=== PATIENT | female | born 1970 | race Hispanic/Latino ===

== ENCOUNTER 2021-02-19 12:11 | Emergency (ER) | payer OTHER, SELFPAY ==
[2021-02-19 12:19] VITALS: BP 136/70; PULSE 73; RESP 18; TEMP 36.4; O2SAT 99; BMI 31.8
[2021-02-19 12:56] VITALS: BP 127/63; PULSE 74; RESP 22; O2SAT 99
--- NOTE | 2021-02-19 13:14 | ED_ITS ---
HPI - Back Pain/Injury <Don Henson PA-C - Last Filed: 02/19/21 13:53> General Chief Complaint: Trauma Stated Complaint: neck/shoulder pain x10 days Time Seen by Provider: 02/19/21 12:33 Source: patient and family History of Present Illness HPI Narrative: Porsche presents today with chief complaint left-sided neck pain and shoulder pain after she fell off of a hay wagon approximately 10 days ago. She reports that when she fell she landed onto her left shoulder and felt dazed for a few minutes. 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 She denies hitting her head, loss of consciousness, vomiting or any other significant symptoms at that time. The pain in her left shoulder and neck became worse over the following 2 days and she sought care at the walk-in clinic. X-rays were done of her shoulder and C-spine which came back with no obvious fractures. Patient's symptoms then remains stable. Over the last 2 days she has had worsening left-sided neck pain and muscle spasms. She went to the walk-in clinic again yesterday and saw the same provider who ordered C-spine films which came back within normal limits. The walk-in clinic provider suggested that she come to the emergency department for possible CT scan today. A Toradol injection was given to her last night which significantly helped her symptoms and allowed her to sleep throughout the night. However, this morning she had stiffness in her left neck and decided to come in. She has been taking ibuprofen 800 mg and Tylenol which seems to be helping her symptoms. She denies any significant vision changes, chest pain, difficulty breathing, difficulty swallowing or any other acute concerns or complaints. Related Data Home Medications Medication Instructions Recorded Confirmed albuterol sulfate 90 mcg/actuation 2 inh INHALATION QID PRN 02/19/21 02/19/21 aerosol inhaler bupropion HCl 150 mg tablet,12 hr 150 mg PO BID 02/19/21 02/19/21 sustained-release cyclobenzaprine 10 mg tablet 10 mg PO TID PRN 02/19/21 02/19/21 ibuprofen 800 mg tablet 800 mg PO TID 02/19/21 02/19/21 levothyroxine 50 mcg tablet 50 mcg PO DAILY 02/19/21 02/19/21 Allergies Allergy/AdvReac Type Severity Reaction Status Date / Time Gadolinium-Containing Allergy Severe Anaphylaxis Verified 02/19/21 12:25 Contrast Medi Review of Systems <Don Henson PA-C - Last Filed: 02/19/21 13:53> Review of Systems Narrative: As per HPI Patient History <Don Henson PA-C - Last Filed: 02/19/21 13:53> Social History Smoking Status: Never smoker Smoking Status: Never smoker alcohol intake frequency: 0-2 drinks per day Substance Use Type: does not use Exam <Don Henson PA-C - Last Filed: 02/19/21 13:53> Narrative Exam Narrative: Exam Narrative: Const General: cooperative, healthy appearing, comfortable, no acute distress, well developed and well groomed Nutritional Appearance: average body habitus Orientation: alert and oriented x3 HENMT Head: normal to inspection and atraumatic Ears: hearing grossly normal bilaterally, no hemotympanum Nose: external nose normal and nares normal, no nasal discharge Face and sinus: normal facial exam Neck Neck: normal visual inspection and supple, no midline spinal tenderness, able to rotate her neck actively greater than 20? each side without wincing, significant left-sided trapezial tenderness with palpation. Anterior tenderness overlying the SCM on the left. Resp Effort & Inspection: normal respiratory effort, able to speak in complete sentences, no audible wheezes, not labored, no nasal flaring and no respiratory distress, clear to auscultation Neuro General: alert, oriented x3, gait normal, tone normal and moves all extremities, cranial nerves 2-12 grossly intact Cognition: normal cognition Speech: speech normal Gait: normal gait Psych Appearance: grossly normal and well kempt Mental Status: mental status grossly normal Speech and Movement: speech and movement normal Mood: congruent mood Affect: normal affect Initial Vital Signs Initial Vital Signs: Vital Signs Temperature 97.6 F 02/19/21 12:19 Pulse Rate 73 02/19/21 12:19 Respiratory Rate 18 02/19/21 12:19 Blood Pressure 136/70 02/19/21 12:19 Pulse Oximetry 99 02/19/21 12:19 <Lurdes Pierce DO - Last Filed: 02/25/21 00:46> Initial Vital Signs Initial Vital Signs: Vital Signs Temperature 97.6 F 02/19/21 12:19 Pulse Rate 73 02/19/21 12:19 Respiratory Rate 18 02/19/21 12:19 Blood Pressure 136/70 02/19/21 12:19 Pulse Oximetry 99 02/19/21 12:19 Scores <JOSSELYN Govea Last Filed: 02/19/21 13:53> [place] CT Head Rule Age <16 years old: No Patient on blood thinners: No Seizure after injury: No Exclusion: Patient NOT Excluded, Proceed to next steps GCS < 15 at 2 hr post trauma: No Suspected open or depressed skull fracture: No Any sign of basilar skull fracture (hemotympanum, raccoon eyes, Henderson's sign, CSF radha-/rhinorrhea): No Two or more episodes of vomiting: No Age greater or equal to 65 years: No Retrograde amnesia to the event greater or equal to 30 min: No Dangerous Mechanism (pedestrian vs. mv, occupant ejected from mv, fall from >3 ft or > 5 stairs): Yes Recommendation: Consider CT. The [place] Head CT Rule cannot rule out need for Imaging. Nexus Score for C-Spine Focal Neurologic deficit present: No Midline spinal tenderness present: No Altered level of conciousness present: No Intoxication present: No Distracting Injury Present: No Nexus Criteria for C-spine: 0 <Lurdes Pierce DO - Last Filed: 02/25/21 00:46> [place] CT Head Rule Exclusion: Patient NOT Excluded, Proceed to next steps Recommendation: Consider CT. The [place] Head CT Rule cannot rule out need for Imaging. Nexus Score for C-Spine Nexus Criteria for C-spine: 0 Course <JOSSELYN Govea Last Filed: 02/19/21 13:53> Vital Signs Vital signs: Vital Signs - 8 hr 02/19/21 12:19 02/19/21 12:56 Temperature 97.6 F Pulse Rate 73 74 Respiratory Rate 18 22 Blood Pressure 136/70 127/63 Pulse Oximetry 99 99 <Lurdse Pierce DO - Last Filed: 02/25/21 00:46> Vital Signs Vital signs: Vital Signs - 8 hr 02/19/21 12:19 02/19/21 12:56 Temperature 97.6 F Pulse Rate 73 74 Respiratory Rate 18 22 Blood Pressure 136/70 127/63 Pulse Oximetry 99 99 MDM - Back Pain/Injury <JOSSELYN Govea Last Filed: 02/19/21 13:53> [facility] Narrative Medical decision making narrative: Based on physical examination and risk stratification scores, no CT as needed for her C-spine. She has a dangerous mechanism injury for her head CT but denies any impact to her head, loss of consciousness, has no signs of basilar skull fracture, and is neurologically intact. She does not have a worsening isolated headache and is not on any blood thinners. I discussed all this with the patient and she elected to not get a CT scan at this time. I think that that is completely reasonable. I suspect that her symptoms are due to the muscle strain secondary to her fall which is now spasming. She was prescribed muscle relaxers last night but has not yet filled her prescription. Recommend that she do this in addition to getting massage applying warm compresses, do light stretching. I expect her symptoms to improve with these therapies. Strict ER return precautions were discussed with the patient. Patient verbalizes understanding and agrees to plan and has no further concerns at this time. Thank you A [id number] system was used with the dictation of this note. Please disregard any spelling or grammatical errors. Discharge Plan Departure Patient Disposition: Home Clinical Impression: Cervical paraspinal muscle spasm, Trapezius muscle spasm Activity Restrictions/Additional Instructions: Please apply warm compresses, do light stretching of your neck and shoulder, and use nonsteroidal anti-inflammatories in addition to muscle relaxers as needed to help with symptoms. I also highly encouraged you to get set up with a massage therapist to can help you heal from this injury. If you experience worsening pain, fever, confusion, vision changes, worsening headache have any other acute concerns or complaints do not hesitate to return for re-evaluation. Thank you Don Henson PA-C Prescriptions: No Action cyclobenzaprine 10 mg tablet 10 mg PO TID PRN (Reason: Muscle Spasm) RF: 0 bupropion HCl 150 mg tablet sustained-release 12 hr 150 mg PO BID RF: 0 levothyroxine 50 mcg tablet 50 mcg PO DAILY RF: 0 albuterol sulfate 90 mcg/actuation HFA aerosol inhaler 2 inh INHALATION QID PRN (Reason: Wheezing) RF: 0 ibuprofen 800 mg Tablet 800 mg PO TID RF: 0 <Lurdes Pierce DO - Last Filed: 02/25/21 00:46> Cosign ED Attending Cosignature Attestation: I was immediately available in the department for consultation. Documentation has been reviewed.
[2021-02-19 13:55] VITALS: BP 119/61; PULSE 75; RESP 18; O2SAT 100
== END 2021-02-19 14:02 | disposition home or self-care (01) ==
PROVIDERS: Emergency Provider Physician Assistant
DX: M62.830 Muscle spasm of back (principal); M25.512 Pain in left shoulder
CPT/HCPCS: 99281; 99284

== ENCOUNTER → 2022-11-17 16:49 | Outpatient (CLI) | payer OTHER, SELFPAY ==
--- NOTE | 2022-11-17 16:50 | DI.MRI.S_ITS ---
PROCEDURE: MR FOOT RT WO CON INDICATIONS: Pain in right foot Crushing injury of right foot TECHNIQUE: Noncontrast sagittal T1 spin echo and T2 fast spin echo with fat saturation, long-axis T1 spin echo and T2 fast spin echo with fat saturation, short-axis T1 spin echo and T2 fast spin echo with fat saturation through the forefoot. COMPARISON: [facility], CR, XR FOOT 3+ VIEWS RIGHT, 09/27/2022, 17:37. FINDINGS: Image quality: Excellent. Bones and joints: There is significant marrow edema involving base and proximal shaft of 3rd and 4th metatarsal bones. Subtle hypointense signal within area of edema are seen without definite cortical disruption. Finding is concerning for acute nondisplaced fractures in these areas. No other area of abnormal marrow signal. Mild midfoot and forefoot joint osteoarthritic changes are seen. Soft tissues: Mild soft tissue edema and swelling surrounding 3rd and 4th metatarsal bases are noted. The visualized plantar foot muscles demonstrate normal signal and bulk. Visualized flexor and extensor tendons appear intact, without tenosynovitis. The distal insertions of the peroneus brevis and longus tendons appear intact. The principal Lisfranc ligament appears intact. No soft tissue ganglion cysts or bursal fluid collections. Sagittal images demonstrate no evidence for plantar plate tears. IMPRESSION: 1. Finding is consistent with acute nondisplaced fractures involving bases and proximal shaft of 3rd and 4th metatarsal bones with adjacent soft tissue swelling and edema. 2. Mild midfoot and forefoot joint osteoarthritis. No other fracture or dislocation. 3. Extensor and flexor tendons are intact. Lisfranc ligament is intact. Dictated by: Patricio Murray M.D. on 11/18/2022 at 8:35 Approved by: Patricio Murray M.D. on 11/18/2022 at 8:51
== END ==
PROVIDERS: Referring Provider Podiatrist; Visit Provider Podiatrist
DX: S92.334A Nondisplaced fracture of third metatarsal bone, right foot, initial encounter for closed fracture (principal); S92.344A Nondisplaced fracture of fourth metatarsal bone, right foot, initial encounter for closed fracture; M19.071 Primary osteoarthritis, right ankle and foot; M79.671 Pain in right foot; X58.XXXA Exposure to other specified factors, initial encounter
CPT/HCPCS: 73718

== ENCOUNTER → 2023-08-09 11:53 | Outpatient (CLI) | payer OTHER, SELFPAY ==
--- NOTE | 2023-08-09 11:56 | DI.MRI.S_ITS ---
PROCEDURE: MR HEAD/BRAIN WO CON INDICATIONS: Neoplasm of unspecified behavior of brain TECHNIQUE: Noncontrast axial T1 spin echo, axial T2 fast spin echo, sagittal and axial FLAIR, coronal T2 fast spin echo, axial gradient echo, axial diffusion and ADC through the brain. COMPARISON: Outside Film, CT, CT FACIAL BONES WITHOUT CONTRAST, 07/19/2021, 14:52. FINDINGS: Image quality: This examination is limited by involuntary motion artifact. CSF Spaces: Basal cisterns are patent. No extra-axial fluid collections. Ventricles are normal in size and shape. Brain: No intracranial masses or hemorrhage. Moncada/white matter interface is normal. Brainstem appears normal. Diffusion-weighted images demonstrate no acute infarct. No chronic ischemic insults. Normal intravascular flow voids are present. Skull and face: Calvarium has normal marrow signal. Orbits appear normal. Sinuses: Moderate mucosal thickening can be seen within the left maxillary sinus. Mild mucosal thickening can be seen elsewhere within the paranasal sinuses. IMPRESSION: To the limits of this noncontrast study, no findings masses or mass effect can be seen. If there is strong clinical concern for intracranial neoplasm, please consider a dedicated contrast enhanced MRI for further evaluation, as it is much more sensitive. Additional findings: Focal left maxillary sinus disease Dictated by: Joon Dumont M.D. on 08/09/2023 at 14:32 Approved by: Joon Dumont M.D. on 08/09/2023 at 14:36
== END ==
PROVIDERS: PCP Nurse Practitioner Family; Referring Provider Nurse Practitioner Family; Visit Provider Nurse Practitioner Family
DX: D49.6 Neoplasm of unspecified behavior of brain (principal)
CPT/HCPCS: 70551

== ENCOUNTER → 2024-02-26 12:01 | Outpatient (CLI) | payer OTHER, SELFPAY | PROVIDERS: PCP Nurse Practitioner Family; Visit Provider Physician Assistant Surgical | DX: R30.0 Dysuria (principal) | CPT/HCPCS: 87086 ==

== ENCOUNTER → 2024-02-26 12:34 | Outpatient (CLI) | payer OTHER, SELFPAY ==
--- NOTE | 2024-02-26 12:36 | DI.RAD.S_ITS ---
PROCEDURE: XR KUB INDICATIONS: HX nephrolithiasis, TECHNIQUE: One view of the abdomen acquired. COMPARISON: None. FINDINGS: Surgical changes and devices: None. Bowel: Bowel gas pattern is normal. Increased quantity of solid stool present in the ascending and transverse colon. Soft tissues: No suspicious abdominal calcifications. Visualized solid organ contours appear normal in size. Bones: No suspicious bony lesions. IMPRESSION: No significant urinary calcifications. For further detail, CT KUB is recommended. Mild proximal colonic obstipation. Dictated by: Lianet Robertson M.D. on 02/26/2024 at 14:53 Approved by: Lianet Robertson M.D. on 02/26/2024 at 14:54
== END ==
LOC: RAD 12:35
PROVIDERS: PCP Nurse Practitioner Family; Referring Provider Physician Assistant Surgical; Visit Provider Physician Assistant Surgical
DX: K59.00 Constipation, unspecified (principal); M54.9 Dorsalgia, unspecified; R30.0 Dysuria
CPT/HCPCS: 74018; 87086

== ENCOUNTER 2024-08-11 14:50 | Emergency (ER) | payer OTHER, SELFPAY ==
[2024-08-11] VITALS (8 sets, daily range): BP systolic 127–140; BP diastolic 59–72; PULSE 60–79; RESP 14–32; TEMP 37.7; O2SAT 95–100; BMI 31.1
--- NOTE | 2024-08-11 15:07 | DI.RAD.S_ITS ---
PROCEDURE: XR CHEST 1V INDICATIONS: chest pain TECHNIQUE: One view of the chest was acquired. COMPARISON: None. FINDINGS: Surgical changes and devices: None. Lungs and pleura: Lungs are clear. No pleural effusions or pneumothorax. Mediastinum: Mediastinal contours appear normal. Heart size is enlarged. Bones and chest wall: No suspicious bony lesions. Overlying soft tissues appear unremarkable. IMPRESSION: No acute cardiopulmonary abnormality is seen. Dictated by: Alireza Hernandez M.D. on 08/11/2024 at 15:44 Approved by: Alireza Hernandez M.D. on 08/11/2024 at 15:44
--- NOTE | 2024-08-11 15:07 | DI.US.S_ITS ---
PROCEDURE: US PERIPH VENOUS UP EXTREM RT INDICATIONS: right arm pain,coldness TECHNIQUE: Real-time imaging, as well as color and pulse Doppler interrogation, was performed of the upper extremity deep veins from the inferior neck to the antecubital fossa. COMPARISON: None. FINDINGS: The internal jugular vein, visualized portions of the subclavian vein, axillary, and brachial veins are free of intraluminal thrombus. Where physically possible, the veins are normally compressible. Color and pulse Doppler demonstrate normal intraluminal flow, with expected phasicity and pulsatility. Additional scanning of the cephalic and basilic veins of the superficial system demonstrates normal compressibility, without thrombus. IMPRESSION: No findings of upper extremity deep venous thrombosis can be seen. Dictated by: Alireza Hernandez M.D. on 08/11/2024 at 16:10 Approved by: Alireza Hernandez M.D. on 08/11/2024 at 16:10
--- NOTE | 2024-08-11 15:20 | EKG_ITS ---
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
[2024-08-11 15:24] LABS: Add Manual Diff / Slide Review NO; Basophils Absolute Auto 100 /uL (0-100); Basophils Percent Auto 0.8 % (0-2); Eosinophils Absolute Auto 600 /uL (0-450); Eosinophils Percent Auto 6.6 % (2-4); Hematocrit 40.6 % (36-46); Hemoglobin 13.6 g/dL (12.0-16.0); Lymphocytes Absolute Auto 2400 /uL (1100-4500); Lymphocytes Percent Auto 26.7 % (25-40); Mean Corpuscular HGB Conc 33.6 % (30-36); Mean Corpuscular Hemoglobin 29.8 PG (26-34); Mean Corpuscular Volume 88.8 fL (80-100); Monocytes Absolute Auto 600 /uL (0-900); Monocytes Percent Auto 6.5 % (3-14); Neutrophils Absolute Auto 5300 /uL (1500-7000); Neutrophils Percent Auto 59.4 % (50-75); Platelet Count 222 X10^3/uL (150-400); Red Blood Cell Count 4.57 X10^6/uL (4.0-5.2); Red Cell Distribution Width 13.6 % (11.6-14.8)
[2024-08-11 15:32] LABS: PTT Partial Thromboplastin Tim 36 SECONDS (25.1-36.5)
[2024-08-11 15:34] LABS: Alanine Aminotransferase 18 IU/L (<35); Albumin 4.6 g/dL (3.5-5.0); Albumin Globulin Ratio 1.4 (1.0-2.8); Alkaline Phosphatase 93 U/L (38-126); Aspartate Aminotransferase 25 IU/L (14-36); BUN Creatinine Ratio 19.8 (6-22); Bilirubin Total 0.5 mg/dL (0.2-1.3); Blood Urea Nitrogen 17 mg/dL (7-17); Calcium 9.4 mg/dL (8.4-10.2); Carbon Dioxide 23 mmol/L (22-32); Chloride 106 mmol/L (98-107); Creatine Kinase 55 U/L (30-135); Estimated Glomerular Filt Rate > 60 mL/min (>60); Globulin 3.2 g/dL (1.7-4.1); Glucose 102 mg/dL (70-100); HEMOLYSIS 22 (0-50); Lipase 52 U/L (23-300); Magnesium 1.8 mg/dL (1.6-2.3); Potassium 3.7 mmol/L (3.4-5.1); Sodium 139 mmol/L (137-145); Total Protein 7.8 g/dL (6.3-8.2)
[2024-08-11 15:45] LABS: NT-proBNP (BNP-Adult 18+) 80 pg/mL (<125); Troponin I < 0.012 ng/mL (0.01-0.034)
--- NOTE | 2024-08-11 16:04 | ED_ITS ---
HPI - Recheck/Abnormal Lab/Rx General Chief Complaint: Recheck/Abnormal Lab/Rx Stated Complaint: may have trombosis or blood clot Time Seen by Provider: 08/11/24 15:57 Source: patient, RN notes reviewed and old records reviewed Mode of arrival: Ambulatory Limitations: no limitations History of Present Illness HPI narrative: 54-year-old female with a history of factor 5, anxiety, migraines who presents with complaint of thrombosis or blood clot. Patient states on she had a pain in her right eye and then developed a subconjunctival hemorrhage was seen by her physician who checked her rate did not show any major changes. She states it seems to be absorbing her physician told her if anything else weird happens particularly in the her right side she should be re-evaluated. She states today while in her car she felt hot all the sudden like a hot flash and then felt very cold. She states she had pain radiating down her right arm she describes as burning and painful even to light touch to her arm. She knows particularly when she went to reach for something. Denies chest pain states it radiated up little bit towards her neck. She denies any shortness of breath. No syncope. No fevers or chills otherwise. No diaphoresis. No nausea or vomiting. No issues with bowel movements or urination. She was notes she had a upper respiratory infection about a week ago. States she takes Wellbutrin 150 mg twice daily albuterol PRN for hay fever and multivitamin and rizatriptan 2 or 3 times monthly for migraines. 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 Patient states allergic to gadolinium and red dye 3. No tobacco, alcohol or recreational drugs. Dr. Madrigal. Related Data Home Medications Medication Instructions Recorded Confirmed albuterol sulfate 90 mcg/actuation 2 inh inhalation QID PRN Wheezing 02/19/21 02/26/24 aerosol inhaler bupropion HCl 150 mg tablet,12 hr 150 mg PO BID 02/19/21 02/26/24 sustained-release levothyroxine 50 mcg tablet 50 mcg PO DAILY 02/19/21 02/26/24 Previous Rx's Medication Instructions Recorded gabapentin 300 mg capsule 300 mg PO TID #20 caps 08/11/24 (Neurontin) Allergies Allergy/AdvReac Type Severity Reaction Status Date / Time Gadolinium-Containing Allergy Severe Anaphylaxis Verified 02/19/21 12:25 Contrast Medi Review of Systems Review of Systems ROS Unobtainable: All systems reviewed & are unremarkable except as noted in HPI and below Patient History Social History Smoking Status: Never smoker Smoking Status: Never smoker alcohol intake frequency: 0-2 drinks per day Exam Narrative Exam Narrative: GENERAL: Alert and oriented x three, mild distress HEENT: Head normocephalic, atraumatic, EOMI, patient has a small subconjunctival hemorrhage that appears to be resolving at the 6 o'clock position of her right eye, pupils reactive, face symmetric, moist mucous membranes NECK: Supple, full range of motion CARDIOVASCULAR: Regular rate and rhythm without murmurs, rubs or gallops. RESPIRATORY: Breath sounds equal bilaterally, no wheezes rales or rhonchi. ABDOMEN: Soft, nontender. Normoactive bowel sounds all 4 quadrants. No guarding or rebound, rigidity, no mass : No CVA tenderness EXTREMITIES: Normal range of motion, no clubbing or edema. Neurovascularly intact. No swelling bilateral upper extremities. Full range of motion. Patient does have some discomfort to light touch. She was 2+ pulses bilaterally cap refills less than 2 seconds no cyanosis, warmth or pallor appreciated. NEUROLOGICAL: Cranial nerves II through XII grossly intact. Moving all extremities SKIN: Warm, dry, no petechiae, no rashes or lesions. Initial Vital Signs Initial Vital Signs: Vital Signs Temperature 99.8 F H 08/11/24 14:55 Pulse Rate 79 08/11/24 14:55 Respiratory Rate 26 H 08/11/24 14:55 Blood Pressure 133/64 08/11/24 14:55 Pulse Oximetry 100 08/11/24 14:55 Oxygen Delivery Method Room Air 08/11/24 14:55 Course Orders Ordered: ED Orders 08/11/24 15:07 US periph venous up extrem rt Stat XR chest 1V Stat EKG-12 Lead Stat 08/11/24 15:16 Complete Blood Count AUTO DIFF Stat Comprehensive Metabolic Panel Stat Lipase Stat Magnesium Stat NT-proBNP (BNP-Adult 18+) Stat PTT Partial Thromboplastin Temo Stat Prothrombin Time INR Stat Troponin & CK Cardiac Panel Stat Vital Signs Vital signs: Vital Signs - 8 hr 08/11/24 14:55 08/11/24 15:14 08/11/24 15:16 Temperature 99.8 F H Pulse Rate 79 66 Respiratory Rate 26 H Blood Pressure 133/64 140/72 Pulse Oximetry 100 96 Oxygen Delivery Method Room Air 08/11/24 15:16 08/11/24 15:30 08/11/24 15:30 Temperature Pulse Rate 78 69 Respiratory Rate 26 H Blood Pressure 129/64 Pulse Oximetry 100 99 Oxygen Delivery Method 08/11/24 16:02 08/11/24 16:30 08/11/24 16:38 Temperature Pulse Rate 69 61 Respiratory Rate 32 H 17 Blood Pressure 127/59 L Pulse Oximetry 97 95 Oxygen Delivery Method 08/11/24 16:38 Temperature Pulse Rate 60 Respiratory Rate 14 Blood Pressure Pulse Oximetry 100 Oxygen Delivery Method MDM - Recheck/Abnormal Lab/Rx Lab Data 08/11/24 15:16 08/11/24 15:16 Labs: Lab Results 08/11/24 Range/Units 15:16 WBC 9.0 (4.5-11.0) X10^3/uL RBC 4.57 (4.0-5.2) X10^6/uL Hgb 13.6 (12.0-16.0) g/dL Hct 40.6 (36-46) % MCV 88.8 (80-100) fL MCH 29.8 (26-34) PG MCHC 33.6 (30-36) % RDW 13.6 (11.6-14.8) % Plt Count 222 (150-400) X10^3/uL Neut % (Auto) 59.4 (50-75) % Lymph % (Auto) 26.7 (25-40) % [place] % (Auto) 6.5 (3-14) % Eos % (Auto) 6.6 H (2-4) % Baso % (Auto) 0.8 (0-2) % Neut # (Auto) 5300 (7152-1778) /uL Lymph # (Auto) 2400 (4167-8390) /uL [place] # (Auto) 600 (0-900) /uL Eos # (Auto) 600 H (0-450) /uL Baso # (Auto) 100 (0-100) /uL PT 11.0 (9.4-12.5) SECONDS INR 1.0 (0.9-1.3) APTT 36 (25.1-36.5) SECONDS Sodium 139 (137-145) mmol/L Potassium 3.7 (3.4-5.1) mmol/L Chloride 106 (98-107) mmol/L Carbon Dioxide 23 (22-32) mmol/L BUN 17 (7-17) mg/dL Creatinine 0.86 (0.52-1.04) mg/dL Estimated GFR > 60 (>60) mL/min BUN/Creatinine Ratio 19.8 (6-22) Glucose 102 H (70-100) mg/dL Calcium 9.4 (8.4-10.2) mg/dL Magnesium 1.8 (1.6-2.3) mg/dL Total Bilirubin 0.5 (0.2-1.3) mg/dL AST 25 (14-36) IU/L ALT 18 (<35) IU/L Alkaline Phosphatase 93 (38-126) U/L Total Creatine Kinase 55 (30-135) U/L Troponin I < 0.012 (0.01-0.034) ng/mL NT-Pro-B Natriuret Pep 80 (<125) pg/mL Total Protein 7.8 (6.3-8.2) g/dL Albumin 4.6 (3.5-5.0) g/dL Globulin 3.2 (1.7-4.1) g/dL Albumin/Globulin Ratio 1.4 (1.0-2.8) Lipase 52 (23-300) U/L ECG Data Attestation: I personally reviewed and interpreted this ECG as follows: Interpretation: Sinus rhythm rate of 73, MT 164 QRS of 98 QTC of 425 patient has no priors for comparison no acute EKG changes appreciated MDM Narrative Medical decision making narrative: EKG shows sinus rhythm Labs show normal white count, hemoglobin and platelets, INR is 1, electrolytes are appropriate BUN 17 with a creatinine of 0.86 glucose of 102 troponins less than 0.012 with a BNP of 80. Chest x-ray is negative for acute change DVT right upper extremity is negative. 54-year-old female who had sounds like subconjunctival hemorrhage to her right eye patient developed pain in her right upper extremity today after feeling very hot and then cold she describes it as feeling and tingling and very painful even to light touch. She was good range of motion she was neurovascularly intact. Exam does not suggest any arterial occlusion or injury, DVT is negative. Cardiac workup is negative my suspicion for cardiac source with pain to light touch is much lower suspect cervical radiculopathy maybe within the differential. Patient deferred anything for pain. Discussed with the patient she states she tolerates NSAIDs well plans to take this at home discussed can try a little bit of Neurontin see if that is helpful. She does take rizatriptan so discussed can cause some sedation but she does not have to take the Neurontin regularly. Discussed return precautions and need for follow up if symptoms are persisting. Discharge Plan Departure Patient Disposition: Home Clinical Impression: Arm pain, right Activity Restrictions/Additional Instructions: Please follow up for recheck. I suspect your right arm pain maybe more related to nerve impingement or radiculopathy. You can take ibuprofen and/or acetaminophen as needed for pain. If inadequate can try Neurontin 1 tablet every 8 hours as needed. This medication can be mildly sedating. In combination with triptans maybe a little bit more sedating I would not take them at the same time. Prescription sent to [facility] in [place]. Please return if you have new or worsening symptoms, new chest pain, new shortness of breath, passing out, persistent vomiting, new weakness or inability to lift or form maker plaster your arm, color changes such as pallor or cyanosis or other new or concerning changes. Prescriptions: New gabapentin [Neurontin] 300 mg capsule 300 mg PO TID Qty: 20 0RF No Action bupropion HCl 150 mg tablet sustained-release 12 hr 150 mg PO BID Patient Comments: take 1 tablet by mouth twice a day levothyroxine 50 mcg tablet 50 mcg PO DAILY Patient Comments: take 1 tablet by mouth once daily albuterol sulfate 90 mcg/actuation HFA aerosol inhaler 2 inh INHALATION QID PRN (Reason: Wheezing) Patient Comments: inhale 2 puffs by mouth and INTO THE LUNGS every 4 hours if needed for wheezing Referrals: Kanchan Murphy FNP-C [Primary Care Provider] - Stand Alone Forms: Patient Portal/API/Survey
== END 2024-08-11 17:25 | disposition home or self-care (01) ==
PROVIDERS: Emergency Provider Emergency Medicine; PCP Nurse Practitioner Family
DX: M79.601 Pain in right arm (principal); R20.2 Paresthesia of skin; D68.51 Activated protein C resistance
CPT/HCPCS: 36415; 71045; 80053; 82550; 83690; 83735; 83880; 84484; 85025; 85610; 85730; 93005; 93971; 99283; 99284

== ENCOUNTER → 2024-09-16 16:46 | Outpatient (CLI) | payer OTHER, SELFPAY ==
--- NOTE | 2024-09-16 16:51 | DI.MRI.S_ITS ---
PROCEDURE: MR SHOULDER LT WO CON INDICATIONS: PAIN IN LEFT ARM TECHNIQUE: Noncontrast oblique coronal T2 fast spin echo with fat saturation, oblique sagittal T1 spin echo and T2 fast spin echo with fat saturation, axial T1 spin echo and T2 fast spin echo with fat saturation through the shoulder. COMPARISON: None. FINDINGS: Image quality: Excellent. Rotator cuff: Mild tendinosis of the supraspinatus, and the infraspinatus, without tear. The teres minor is unremarkable. The subscapularis is unremarkable. Mild muscle edema along the myotendinous junction of the supraspinatus, likely representing mild muscle strain. No fatty atrophy. Bones and bursae: Mild degenerative changes of the acromioclavicular joint with a large inferior projecting osteophyte. Type 1 acromion. No os acromiale. Mild to moderate subacromial/subdeltoid bursitis. Mild subchondral cystic changes at the posterior greater tuberosity, reactive. No acute fracture. No focal chondral defect of the glenohumeral articulation. Capsule and soft tissues: Anterior superior labral tear, extending anteriorly to the anterior labrum. No paralabral cyst. The extra-articular, and the intra-articular biceps tendon are unremarkable. Trace glenohumeral effusion. No intra-articular body. IMPRESSION: 1. Mild degenerative changes of the acromioclavicular joint with a large inferior projecting osteophyte. Mild to moderate subacromial/subdeltoid bursitis. 2. Mild muscle strain of the supraspinatus. No rotator cuff tendon tear. 3. Labral tear. No paralabral cyst. Dictated by: Julieta Hogue M.D. on 09/17/2024 at 10:09 Approved by: Julieta Hogue M.D. on 09/17/2024 at 10:17
== END ==
PROVIDERS: PCP Nurse Practitioner Family; Referring Provider Nurse Practitioner Family; Visit Provider Nurse Practitioner Family
DX: S46.812A Strain of other muscles, fascia and tendons at shoulder and upper arm level, left arm, initial encounter (principal); M79.602 Pain in left arm; S43.492A Other sprain of left shoulder joint, initial encounter; M75.52 Bursitis of left shoulder
CPT/HCPCS: 73221